=== PATIENT | male | born 1985 | race African-American/Black ===

== ENCOUNTER 2016-09-09 06:55 | Outpatient (CLI) | payer MEDICAID | END 2016-09-09 06:56 | DX: Z11.3 Encounter for screening for infections with a predominantly sexual mode of transmission (principal); N48.9 Disorder of penis, unspecified ==

== ENCOUNTER 2016-11-09 21:14 | Emergency (ER) | payer MEDICAID ==
[2016-11-09 21:40] LABS: BILIRUBIN,URINE NEGATIVE (NEGATIVE)
[2016-11-09 21:49] LABS: UA CHARGE (STRIP ONLY) YES
[2016-11-10] MEDS ORDERED: HYDROcod/ACETAM 5/325 MG TABLET PO STA (00:40)
[2016-11-10] MEDS ORDERED: DOXYCYCLINE 100 MG TABLET PO STA (00:40)
[2016-11-10] MEDS ORDERED: HYDROcod/ACETAM 5/325 MG TABLET ONE (00:45)
[2016-11-10] MEDS ORDERED: DOXYCYCLINE 100 MG TABLET PO ONE (00:45)
--- NOTE | 2016-11-10 00:49 | ED Physician Documentation ---
History of Present Illness - Stated complaint Stated Complaint: MALE - Chief complaint Chief Complaint: UTI - History obtained from History obtained from: Patient - Additonal information Additional information: This patient is a 31-year-old male who is otherwise healthy. He says he was diagnosed with chlamydia last week and received a shot of Rocephin and azithromycin. Apparently he was still having symptoms so he got another dosing of medications 3 days ago. This was again Rocephin and azithromycin. He presents tonight with a complaint of pain in the epididymal area bilaterally. He denies any nausea vomiting, fever, chills, constipation, diarrhea or dysuria. He says his urethral discharge has resolved. Review of systems: For pertinent positive and negatives in the review of systems please see history of present illness. Otherwise all other systems have been reviewed and are negative. Dragon disclaimer: Parts of this medical record were created using voice recognition technology. Because of the inherent limitations of this system occasional same sounding word substitutions do occur and persist despite proofreading. Please read the document for context. Review of Systems Constitutional: denies: Fever, Chills, Myalgias : denies: Dysuria, Frequency, Hesitancy, Unable to Void, Hematuria, Discharge PD PAST MEDICAL HISTORY - Past Medical History Past Medical History: Yes Musculoskeletal: Chronic back pain - Past Surgical History Past Surgical History: No - Present Medications Home Medications: Ambulatory Orders Medication Instructions Recorded Confirmed Doxycycline Hyclate [Vibramycin] 100 mg PO BID #14 capsule 11/10/16 HYDROcod/ACETAM 5/325 [[place] 5/325] 1 tab PO TID PRN #15 tablet 11/10/16 - Allergies Allergies/Adverse Reactions: Allergies Allergy/AdvReac Type Severity Reaction Status Date / Time No Known Drug Allergies Allergy Verified 11/09/16 21:23 - Social History Does the pt smoke?: Yes Smoking Status: Current every day smoker Does the pt drink ETOH?: No Does the pt have substance abuse?: No - Immunizations Immunizations are current?: Yes - POLST Patient has POLST: No PD ED PE NORMAL - General General: Alert and oriented X 3, No acute distress - HEENT HEENT: Atraumatic, PERRL - Cardiac Cardiac: RRR, No murmur - Respiratory Respiratory: No respiratory distress, Clear bilaterally - Abdomen Abdomen: Normal bowel sounds, Soft, Non tender, Non distended - Male Male : Other Results - Vitals Vitals: Vital Signs - 24 hr 11/09/16 21:20 Temperature 37 C Heart Rate 92 Respiratory 18 Rate Blood Pressure 135/85 H O2 Saturation 100 Oxygen O2 Source Room air - Labs Labs: Laboratory Tests 11/09/16 21:30 Urine Color YELLOW Urine Clarity CLEAR Urine pH 7.0 Ur Specific [place] 1.020 Urine Protein NEGATIVE Urine Glucose (UA) NEGATIVE Urine Ketones NEGATIVE Urine Occult Blood NEGATIVE Urine Nitrite NEGATIVE Urine Bilirubin NEGATIVE Urine Urobilinogen 0.2 (NORMAL) Ur Leukocyte Esterase NEGATIVE Ur Microscopic Review NOT INDICATED PD MEDICAL DECISION MAKING - ED course ED course: The patient is a 31-year-old man diagnosed with chlamydia last week treated twice already for the same disorder. His discharge has decreased however he has some pain in the epididymal area. On examination the pain is in the epididymal area but is very proximal. There is no tenderness In the testicles and the patient's scrotum is normal. Given the recent chlamydial infection in the location of tenderness I suspect he might have a chlamydial epididymitis. We again sent a Chlamydial probe tonight. The urine is negative without any significant pyuria. At this point in time I will issue a small amount of pain medications and treat him with a week of doxycycline. Disposition: To home Clinical impression: 1. Recent chlamydial infection 2.Bilateral spermatic and epididymal tenderness Departure - Departure Clinical Impression: Acute epididymitis, Chlamydia infection Condition: Good Instructions: ED Epididymitis, ED STD Male Treated Follow-Up: Robel Jol[facility] [Provider Group] Prescriptions: HYDROcod/ACETAM 5/325 [[place] 5/325] 1 tab PO TID PRN #15 tablet PRN Reason: Pain Doxycycline Hyclate [Vibramycin] 100 mg PO BID #14 capsule
[2016-11-10 00:56] VITALS: BP 130/80
== END 2016-11-10 00:58 | disposition home or self-care (01) ==
LOC: ED 21:14
DX: A56.19 Other chlamydial genitourinary infection (principal); F17.200 Nicotine dependence, unspecified, uncomplicated
CPT/HCPCS: 81003; 87491; 87591; 99283; A9270; 81001

== ENCOUNTER 2017-08-30 23:10 | Outpatient (CLI) | payer OTHER, MEDICAID | END 2017-08-30 23:11 | disposition home or self-care (01) | LOC: LAB 23:10 | PROVIDERS: ATTEND Pathology Blood Banking & Transfusion Medicine | DX: Z01.89 Encounter for other specified special examinations (principal) | CPT/HCPCS: 36415 ==

== ENCOUNTER 2017-10-30 09:45 | Outpatient (CLI) | payer MEDICAID, OTHER | END 2017-10-30 09:46 | disposition home or self-care (01) | LOC: LAB.R 09:45 | PROVIDERS: ATTEND Emergency Medicine | DX: R19.5 Other fecal abnormalities (principal) | CPT/HCPCS: 82270; 87177; 87209 ==

== ENCOUNTER 2022-12-01 11:30 | Outpatient (CLI) | payer OTHER ==
[2022-12-02 10:46] LABS: BILIRUBIN,URINE NEGATIVE (NEGATIVE); GLUCOSE, URINE (UA) NEGATIVE (NEGATIVE); KETONES,URINE (UA) NEGATIVE (NEGATIVE); LEUKOCYTE ESTERASE, URINE NEGATIVE (NEGATIVE); NITRITE,URINE NEGATIVE (NEGATIVE); OCCULT BLOOD,URINE NEGATIVE (NEGATIVE); PROTEIN,URINE NEGATIVE (NEGATIVE); UROBILINOGEN,URINE 0.2 (NORMAL) E.U./dL (NORMAL)
[2022-12-02 10:54] LABS: BACTERIA,URINE None Seen /HPF (None Seen); CLARITY,URINE CLEAR (CLEAR); RBC,URINE None Seen /HPF (0-5); SQUAMOUS EPITHELIAL CELL,UR NONE SEEN (<= Few); WBC,URINE 0-3 /HPF (0-3)
== END 2022-12-01 11:31 | disposition home or self-care (01) ==
LOC: LAB.R 11:30
PROVIDERS: ATTEND Registered Nurse
DX: R82.90 Unspecified abnormal findings in urine (principal)
CPT/HCPCS: 81001; 87086; 87491; 87591; 87661

== ENCOUNTER 2022-12-04 08:00 | Outpatient (CLI) | payer OTHER ==
[2022-12-04 20:42] LABS: ALBUMIN 4.5 g/dL (3.2-5.5); ALBUMIN/GLOBULIN RATIO 1.8 (1.0-2.2); BILIRUBIN,TOTAL 1.1 mg/dL (0.2-1.0); CALCIUM 9.4 mg/dL (8.5-10.3)
== END 2022-12-04 23:59 | disposition home or self-care (01) ==
LOC: LAB.R 08:00
PROVIDERS: ATTEND Registered Nurse
DX: R79.9 Abnormal finding of blood chemistry, unspecified (principal); Z13.228 Encounter for screening for other metabolic disorders; Z12.5 Encounter for screening for malignant neoplasm of prostate
CPT/HCPCS: 80053; 84153; 85025

== ENCOUNTER 2022-12-18 14:45 | Outpatient (CLI) | payer OTHER ==
--- NOTE | 2022-12-18 17:24 | Ultrasound Report ---
PROCEDURE: Testicle INDICATIONS: TESTICULAR PAIN TECHNIQUE: Real-time scanning was performed of the scrotum and testicles, with image documentation. Color and p ulse Doppler interrogation was performed of both testicles. COMPARISON: None. FINDINGS: Right: Testicle is normal in size at 3.7 x 1.7 x 2.7 cm, and homogenous in echotexture. Epididymis is normal in overall size and morphology. No hydrocele. No varicoceles. Overlying scrotal skin is n ormal in thickness. Left: Testicle is normal in size at 3.6 x 1.7 x 2.6 cm, and homogeneous in echotexture. Epididymis is normal in overall size and morphology. Trace amount of hydrocele. No varicoceles. Overlying scro [place] skin is normal in thickness. Doppler: Color and pulse Doppler demonstrate normal and symmetric arterial flow in both testicles. IMPRESSION: 1. Trace amount of left-sided hydrocele. 2. Unremarkable ultrasound examination of bilateral testes and epididymides. Reviewed by: Rafael Wilburn MD on 12/18/2022 5:23 PM PDT Approved by: Rafael Wilburn MD on 12/18/2022 5:23 PM PDT Station ID: [id number]
== END 2022-12-18 23:59 | disposition home or self-care (01) ==
LOC: DI 14:45 → EDSTATUS 15:00 → DI 23:59
PROVIDERS: ATTEND Registered Nurse
DX: N43.3 Hydrocele, unspecified (principal)

== ENCOUNTER 2022-12-27 10:37 | Outpatient (CLI) | payer OTHER ==
[2022-12-27 10:47] LABS: BASOPHILS % (AUTO) 0.2 %; EOSINOPHILS # (AUTO) 0.1 10^3/uL (0.0-0.7); EOSINOPHILS % (AUTO) 1.1 %; HCT - HEMATOCRIT 42.5 % (42.0-52.0); HGB - HEMOGLOBIN 14.1 g/dL (14.0-18.0); LYMPHOCYTES # (AUTO) 2.4 10^3/uL (1.5-3.5); LYMPHOCYTES % (AUTO) 45.2 %; MEAN CORPUSCULAR HEMOGLOBIN 30.3 pg (27.0-31.0); MEAN CORPUSCULAR HGB CONC 33.2 g/dL (32.0-36.0); MEAN CORPUSCULAR VOLUME 91.4 fL (80.0-94.0); MEAN PLATELET VOLUME 10.3 fL (7.4-11.4); MONOCYTES # (AUTO) 0.5 10^3/uL (0.0-1.0); MONOCYTES % (AUTO) 9.7 %; NEUTROPHILS # (AUTO) 2.4 10^3/uL (1.5-6.6); NEUTROPHILS % (AUTO) 43.6 %; PLT - PLATELET COUNT 284 10^3/uL (130-450); RED BLOOD COUNT 4.65 10^6/uL (4.70-6.10); RED CELL DISTRIBUTION WIDTH 13.1 % (12.0-15.0); WHITE BLOOD COUNT 5.4 x10^3/uL (4.8-10.8)
== END 2022-12-27 10:38 | disposition home or self-care (01) ==
LOC: LAB.R 10:37
PROVIDERS: ATTEND Registered Nurse
DX: Z01.89 Encounter for other specified special examinations (principal)
CPT/HCPCS: 85025

== ENCOUNTER 2023-04-01 13:00 | Outpatient (CLI) | payer OTHER | END 2023-04-01 13:01 | disposition home or self-care (01) | LOC: RT 13:00 | PROVIDERS: ATTEND Registered Nurse | DX: R00.2 Palpitations (principal); R07.2 Precordial pain | CPT/HCPCS: 93005 ==